=== PATIENT | male | born 1950 | race Caucasian/White ===

== ENCOUNTER → 2017-07-11 | Outpatient (CLI) | payer BC ==
[~2017-07-11] MED LIST: CRESTOR10 MG PO; PRILOSEC OTC20 MG PO; VITAMIN D32000 UNI1 PO
== END | disposition home or self-care (01) ==
LOC: CDC 08:43
DX: R00.1 Bradycardia, unspecified (principal); I45.4 Nonspecific intraventricular block
CPT/HCPCS: 93000

== ENCOUNTER 2017-07-15 21:25 | Inpatient (IN) | payer BC ==
[~2017-07-15] VITALS: Ht 172.7 cm; Wt 86.2 kg
[2017-07-16 05:37] VITALS: BP 119/68
[2017-07-16 19:04] VITALS: BP 118/67
[2017-07-16 22:50] VITALS: BP 104/60
[2017-07-17 02:52] VITALS: BP 105/62
[2017-07-17 06:32] LABS: EOSINOPHIL (%) 0 % (0-5); IMMATURE GRANULOCYTE (%) 0.5 % (0.0-0.7); IMMATURE GRANULOCYTE COUNT 0.1 K/uL; INSTRUMENT ABS NEUTROPHIL CT 13.3 K/uL; LYMPHOCYTE COUNT 0.7 K/uL (1.0-2.8); MCH 30.4 PG (29.0-34.0); MCHC 33.7 G/DL (30.0-36.0); MCV 90.2 FL (86-99); MONOCYTE (%) 8.4 % (3-12); MONOCYTE COUNT 1.3 K/uL (0-0.8); NEUTROPHIL (%) 86.4 % (45-76); NEUTROPHIL COUNT 13.3 K/uL (1.8-6.4); PLATELET COUNT 255 K/uL (156-360); RBC DIS.WIDTH-CV 12.7 % (11.8-14.6); RBC DIS.WIDTH-SD 42.2 % (39-53); RED BLOOD COUNT 3.88 M/uL (4.00-5.50); WHITE BLOOD COUNT 15.4 K/uL (4.1-10.2)
[2017-07-17 07:00] LABS: ALKALINE PHOSPHATASE 69 IU/L (3-129); ANION GAP 7 MEQ/L (2-14); CHLORIDE 107 MEQ/L (99-109); GFR ESTIMATE (CALCULATED) > 59 mL/min/; GLUCOSE 109 mg/dL (70-99); MAGNESIUM 1.9 mg/dl (1.3-2.7); POTASSIUM 4.6 MEQ/L (3.7-5.4); SAMPLE HEMOLYSIS CHECK 0; SAMPLE ICTERIC CHECK 0; SAMPLE LIPEMIA CHECK 0; SODIUM 140 MEQ/L (136-147); UREA NITROGEN (BUN) 7 mg/dL (9-23)
[2017-07-17 07:01] LABS: TOTAL BILIRUBIN 0.5 MG/DL (0.0-1.0)
[2017-07-17 07:48] VITALS: BP 119/71
[2017-07-17 11:55] VITALS: BP 124/64
[2017-07-17 16:41] VITALS: BP 110/70
[2017-07-17 20:11] VITALS: BP 114/63
[2017-07-18 00:27] VITALS: BP 116/60
[2017-07-18 05:30] VITALS: BP 121/74
[2017-07-18 05:57] LABS: EOSINOPHIL (%) 0.3 % (0-5); HEMATOCRIT 32.6 % (38.0-50.0); IMMATURE GRANULOCYTE (%) 0.4 % (0.0-0.7); IMMATURE GRANULOCYTE COUNT 0.1 K/uL; INSTRUMENT ABS NEUTROPHIL CT 9.9 K/uL; MCH 31.6 PG (29.0-34.0); MCHC 34.4 G/DL (30.0-36.0); MCV 92.1 FL (86-99); MEAN PLAT.VOLUME 10.4 uM^3 (9.0-12.4); MONOCYTE (%) 9.6 % (3-12); MONOCYTE COUNT 1.2 K/uL (0-0.8); NEUTROPHIL (%) 81.1 % (45-76); NEUTROPHIL COUNT 9.9 K/uL (1.8-6.4); PLATELET COUNT 229 K/uL (156-360); RED BLOOD COUNT 3.54 M/uL (4.00-5.50); WHITE BLOOD COUNT 12.2 K/uL (4.1-10.2)
[2017-07-18 06:20] LABS: ANION GAP 6 MEQ/L (2-14); CHLORIDE 107 MEQ/L (99-109); GFR ESTIMATE (CALCULATED) > 59 mL/min/; GLUCOSE 87 mg/dL (70-99); MAGNESIUM 1.8 mg/dl (1.3-2.7); POTASSIUM 4.1 MEQ/L (3.7-5.4); SAMPLE HEMOLYSIS CHECK 0; SAMPLE ICTERIC CHECK 0; SAMPLE LIPEMIA CHECK 0; SODIUM 140 MEQ/L (136-147); UREA NITROGEN (BUN) 7 mg/dL (9-23)
[2017-07-18 07:43] VITALS: BP 118/72
[2017-07-18 11:41] VITALS: BP 100/59
[2017-07-18 15:34] VITALS: BP 102/58
[2017-07-18 20:05] VITALS: BP 100/62
[2017-07-19 00:36] VITALS: BP 98/59
[2017-07-19 07:02] LABS: BASOPHIL COUNT 0.1 K/uL (0-0.1); EOSINOPHIL (%) 1.9 % (0-5); EOSINOPHIL COUNT 0.2 K/uL (0-0.3); HEMATOCRIT 38.3 % (38.0-50.0); IMMATURE GRANULOCYTE (%) 0.4 % (0.0-0.7); IMMATURE GRANULOCYTE COUNT 0.1 K/uL; INSTRUMENT ABS NEUTROPHIL CT 9.2 K/uL; LYMPHOCYTE COUNT 1.2 K/uL (1.0-2.8); MCH 30.5 PG (29.0-34.0); MCHC 33.4 G/DL (30.0-36.0); MCV 91.2 FL (86-99); MEAN PLAT.VOLUME 10.5 uM^3 (9.0-12.4); MONOCYTE (%) 9.6 % (3-12); MONOCYTE COUNT 1.1 K/uL (0-0.8); NEUTROPHIL (%) 77.6 % (45-76); NEUTROPHIL COUNT 9.2 K/uL (1.8-6.4); PLATELET COUNT 280 K/uL (156-360); RBC DIS.WIDTH-SD 43.6 % (39-53); WHITE BLOOD COUNT 11.8 K/uL (4.1-10.2)
[2017-07-19 07:26] LABS: ANION GAP 11 MEQ/L (2-14); CHLORIDE 102 MEQ/L (99-109); GFR ESTIMATE (CALCULATED) > 59 mL/min/; GLUCOSE 93 mg/dL (70-99); POTASSIUM 3.9 MEQ/L (3.7-5.4); SAMPLE HEMOLYSIS CHECK 0; SAMPLE ICTERIC CHECK 0; SAMPLE LIPEMIA CHECK 0; SODIUM 139 MEQ/L (136-147); UREA NITROGEN (BUN) 6 mg/dL (9-23)
[2017-07-19 08:00] VITALS: BP 109/61
[2017-07-19] MEDS ORDERED: PERCOCET 5/31 TABLET PO (09:45)
== END 2017-07-19 11:52 | disposition home or self-care (01) | DRG 331 ==
LOC: ENRESERV 21:25 → 5EAST 07-16 05:19 → 2SOUTH 07-16 05:19 → ENRESERV 07-16 11:27 → 2SOUTH 07-16 11:33 → ENRESERV 07-16 12:17 → 5EAST 07-16 14:14 → 2SOUTH 07-16 14:27 → ENPENDDIS 07-19 → 5EAST 07-19 11:52
PROVIDERS: Physician Assistant Surgical; Surgery
PROC: 0DTN4ZZ Resection of Sigmoid Colon, Percutaneous Endoscopic Approach (ICD-10-PCS; principal; 2017-07-16)
PROC: 0T778DZ Dilation of Left Ureter with Intraluminal Device, Via Natural or Artificial Opening Endoscopic (ICD-10-PCS; principal; 2017-07-16)
DX: K57.32 Diverticulitis of large intestine without perforation or abscess without bleeding (principal); K21.9 Gastro-esophageal reflux disease without esophagitis; E78.5 Hyperlipidemia, unspecified; K66.0 Peritoneal adhesions (postprocedural) (postinfection); E73.9 Lactose intolerance, unspecified
CPT/HCPCS: 71020; 80048; 80053; 83735; 84100; 85025; 88307; 93005; C1758; J0131; J1100; J1170; J1650; J2250; J2405; J2710; J3010; J7120; S0030

== ENCOUNTER 2018-04-21 13:40 | Inpatient (IN) | payer OTHER, BC ==
[~2018-04-21] VITALS: Ht 172.7 cm; Wt 89.6 kg
[~2018-04-21 13:40] MED LIST changes: +PERCOCET 5/31 TABLET PO
[2018-04-21 14:26] LABS: APPEARANCE CLEAR ((CLEAR)); BILIRUBIN NEGATIVE; BLOOD SMALL; COLOR YELLOW ((YELLOW)); GLUCOSE (STRIP) NEGATIVE; KETONES 5; LEUKOCYTES NEGATIVE; NITRITE NEGATIVE; PROTEIN (STRIP) NEGATIVE; UROBILINOGEN 0.2 MG/DL (0.2-1.0)
[2018-04-21 14:27] LABS: SPECIFIC GRAVITY > 1.060 (1.000-1.030)
[2018-04-21 14:27] LABS: HEMATOCRIT 43.5 % (38.0-50.0); HEMOGLOBIN 15.5 G/DL (12.5-16.6); MCH 31.8 PG (29.0-34.0); MCHC 35.6 G/DL (30.0-36.0); MCV 89.1 FL (86-99); PLATELET COUNT 261 K/uL (156-360); RBC DIS.WIDTH-CV 12.3 % (11.8-14.6); RBC DIS.WIDTH-SD 40.6 % (39-53); RED BLOOD COUNT 4.88 M/uL (4.00-5.50); WHITE BLOOD COUNT 9.6 K/uL (4.1-10.2)
[2018-04-21 14:30] LABS: BACTERIA NONE SEEN /HPF; EPITHELIAL CELLS NONE SEEN /HPF; MUCUS NONE SEEN /LPF; RED BLOOD CELLS 0-5 /HPF (0-5); WHITE BLOOD CELLS 0-5 /HPF (0-5)
[2018-04-21 14:34] LABS: INTER. NORMALIZED RATIO 1.3
[2018-04-21 14:36] LABS: PTT 30.2 SEC (25-37)
[2018-04-21 15:18] LABS: ALBUMIN 4.3 G/DL (3.2-4.8); ALKALINE PHOSPHATASE 128 IU/L (3-129); ALT (GPT) 25 IU/L (3-49); AST (GOT) 17 IU/L (2-34); CHLORIDE 99 MEQ/L (99-109); CREATININE 0.9 MG/DL (0.6-1.3); GFR ESTIMATE (CALCULATED) > 59 mL/min/ (58.99-99999); GLUCOSE 92 mg/dL (70-99); LIPASE 27 U/L (1.0-51.0); POTASSIUM 4.1 MEQ/L (3.7-5.4); SODIUM 135 MEQ/L (136-147); TOTAL BILIRUBIN 0.6 MG/DL (0.0-1.0); TOTAL PROTEIN 7.6 G/DL (6.4-8.3); UREA NITROGEN (BUN) 11 mg/dL (9-23)
[2018-04-21 21:04] VITALS: BP 112/66
[2018-04-21 23:38] VITALS: BP 126/75
[2018-04-22 06:23] LABS: HEMATOCRIT 37.8 % (38.0-50.0); MCH 30.7 PG (29.0-34.0); MCHC 34.4 G/DL (30.0-36.0); MCV 89.2 FL (86-99); PLATELET COUNT 266 K/uL (156-360); RBC DIS.WIDTH-CV 12.4 % (11.8-14.6); RBC DIS.WIDTH-SD 40.3 % (39-53); RED BLOOD COUNT 4.24 M/uL (4.00-5.50); WHITE BLOOD COUNT 14.8 K/uL (4.1-10.2)
[2018-04-22 06:28] LABS: CHLORIDE 100 MEQ/L (99-109); CREATININE 0.8 MG/DL (0.6-1.3); GFR ESTIMATE (CALCULATED) > 59 mL/min/ (58.99-99999); GLUCOSE 128 mg/dL (70-99); POTASSIUM 4.9 MEQ/L (3.7-5.4); SODIUM 133 MEQ/L (136-147); UREA NITROGEN (BUN) 13 mg/dL (9-23)
[2018-04-22 07:24] VITALS: BP 129/79
[2018-04-22] MEDS ORDERED: NORCO 5/3251 TABLET PO (09:48)
[2018-04-22 11:28] VITALS: BP 129/80
[2018-04-22] MEDS ORDERED: FLONASE16 G1 BOTH NARES (14:01)
[2018-04-22 16:04] VITALS: BP 118/69
[2018-04-22 20:23] VITALS: BP 121/61
[2018-04-23 00:11] VITALS: BP 113/56
[2018-04-23 03:47] VITALS: BP 109/60
[2018-04-23 07:26] LABS: HEMATOCRIT 31.7 % (38.0-50.0); MCH 30.2 PG (29.0-34.0); MCHC 34.1 G/DL (30.0-36.0); MCV 88.5 FL (86-99); PLATELET COUNT 269 K/uL (156-360); RBC DIS.WIDTH-CV 12.2 % (11.8-14.6); RBC DIS.WIDTH-SD 39.8 % (39-53); RED BLOOD COUNT 3.58 M/uL (4.00-5.50)
[2018-04-23 07:30] LABS: HEMOGLOBIN 10.8 G/DL (12.5-16.6)
[2018-04-23 07:37] VITALS: BP 113/63
[2018-04-23] MEDS ORDERED: NORCO 5/3251 TABLET PO (10:48)
== END 2018-04-23 11:08 | disposition home or self-care (01) | DRG 331 ==
LOC: EME 13:40 → SDC 16:36 → EME 16:36 → ENRESERV 19:22 → 2EAST 20:10
PROVIDERS: Emergency Medicine; Physician Assistant; Surgery
DX: K35.3 Acute appendicitis with localized peritonitis (principal); K66.0 Peritoneal adhesions (postprocedural) (postinfection); K21.9 Gastro-esophageal reflux disease without esophagitis; E73.9 Lactose intolerance, unspecified; Z53.31 Laparoscopic surgical procedure converted to open procedure; Z87.19 Personal history of other diseases of the digestive system; Z90.49 Acquired absence of other specified parts of digestive tract; Z88.0 Allergy status to penicillin
CPT/HCPCS: 36415; 80048; 80053; 81003; 82150; 83690; 85025; 85027; 85610; 85730; 86850; 86900; 86901; 88304; 93005; 99281; 99285; J0330; J1100; J1170; J1650; J1885; J2250; J2405; J2710; J3010; J7120; J7643; S0074